=== PATIENT | male | born 1955 | race Caucasian/White ===

== ENCOUNTER 2023-05-13 06:00 | Day surgery (SDC) | payer MEDICARE, OTHER ==
[2023-05-07 13:53] VITALS: BMI 25.0
[~2023-05-13 06:00] MED LIST: EPINEPHrine 0.3 MG in Ophthalmic Irrigation Solution 500 ML IRR SCH
[2023-05-13] MEDS ORDERED: Cyclopentolate W/ Phenylephrin 5 ML BOT ONE (06:05)
[2023-05-13] MEDS ORDERED: fentaNYL 50 mcg/mL 1 mL Vial ONE (06:36)
[2023-05-13] MEDS ORDERED: Midazolam HCl 2 mg/2 ml Vial ONE (06:36)
[2023-05-13] MEDS ORDERED: PROPOFOL 20 ML ONE (06:36)
[2023-05-13] MEDS ORDERED: Lidocaine 1% PF 5 ML VIAL ONE (06:37)
[2023-05-13] MEDS ORDERED: Indocyanine Green 25 MG/10 ML VIAL ONE (07:49)
[2023-05-13] MEDS ORDERED: Lidocaine 4% PF 5 ML AMP ONE (07:49)
[2023-05-13] MEDS ORDERED: Triamcinolone 40 MG/ML VIAL ONE (07:49)
[2023-05-13] MEDS ORDERED: CEFAZOLIN 1 GM VIAL ONE (07:49)
[2023-05-13] MEDS ORDERED: Maxitrol 0.1% Opth Oint 3.5 GM TUBE ONE (07:49)
[2023-05-13] MEDS ORDERED: Bupivacaine 0.75% 10 ML VIAL ONE (07:49)
== END 2023-05-13 09:25 | disposition home or self-care (01) ==
LOC: SDC 06:00
PROVIDERS: ATTEND Ophthalmology Retina Specialist
PROC: 08T43ZZ Resection of Right Vitreous, Percutaneous Approach (ICD-10-PCS; principal; 2023-05-13)
PROC: 08NE3ZZ Release Right Retina, Percutaneous Approach (ICD-10-PCS; 2023-05-13)
DX: H35.371 Puckering of macula, right eye (principal)
CPT/HCPCS: 67042; J3010; J0171; J0690; J2250; J2704; J3301; J3490